=== PATIENT | male | born 1990 | race Caucasian/White ===

== ENCOUNTER 2019-04-22 08:53 | Inpatient (IN) | payer OTHER ==
[2019-04-22] MEDS: LACTATED RINGER'S 1,000 ML IV (10:04)
[2019-04-22] MEDS ORDERED: POLYMYXIN/BACITRACIN 1L IRRIG (11:08)
[2019-04-22] MEDS ORDERED: PROPOFOL 20 ML (11:34)
[2019-04-22] MEDS ORDERED: MIDAZOLAM 1 MG/ML 2 ML INJ (11:34)
[2019-04-22] MEDS ORDERED: LIDOCAINE 2% (SDV) 5 ML INJ (11:34)
[2019-04-22] MEDS ORDERED: SUCCINYLCHOLINE CHLORIDE 100 MG/5 ML SYG IV (11:34)
[2019-04-22] MEDS ORDERED: ROCURONIUM 50 MG INJ (11:34)
[2019-04-22] MEDS ORDERED: CEFAZOLIN 1 GM INJ (11:54)
[2019-04-22] MEDS ORDERED: FAMOTIDINE 20 MG INJ (11:54)
[2019-04-22] MEDS ORDERED: DEXAMETHASONE 4 MG/ML 5 ML INJ (11:54)
[2019-04-22] MEDS ORDERED: ONDANSETRON 4 MG INJ (11:54)
[2019-04-22] MEDS: HEMOSTATIC MATRIX SYG ZFS (12:25)
[2019-04-22] MEDS: BUPIVACAINE 0.5%/EPI (SDV) 30 ML INJ (12:25)
[2019-04-22] MEDS: GELATIN SIZE 100 SPONGE (12:25)
[2019-04-22] MEDS: THROMBIN 5000 UNIT (RECOTHROM) VIAL (12:26)
[2019-04-22] MEDS ORDERED: GLYCOPYRROLATE 0.4 MG INJ (14:57)
[2019-04-22] MEDS ORDERED: NEOSTIGMINE 3 MG/3 ML SYRINGE (14:57)
[2019-04-22] MEDS ORDERED: FENTAnyl 50 MCG/ML VIAL (15:18)
[2019-04-22] MEDS ORDERED: FENTAnyl 50 MCG/ML VIAL IV ×2 (15:30)
[2019-04-22] MEDS ORDERED: HYDROCODONE/APAP (5/325) TAB PO (15:30)
[2019-04-22] MEDS ORDERED: NACL 0.9% 3 ML SYG IV (15:30)
[2019-04-22] MEDS ORDERED: PROCHLORPERAZINE 10 MG TAB PO (15:30)
[2019-04-22] MEDS ORDERED: HYDROmorphONE 1 MG/5 ML IV SYRINGE IV (15:30)
[2019-04-22] MEDS ORDERED: MEPERIDINE 25 MG INJ IV (15:30)
[2019-04-22] MEDS ORDERED: ONDANSETRON 4 MG INJ IV ×2 (15:30)
[2019-04-22] MEDS ORDERED: NALOXONE (0.4 MG/ML) INJ IV (15:30)
[2019-04-22] MEDS ORDERED: PROCHLORPERAZINE 10 MG INJ IV (15:30)
[2019-04-22] MEDS: FENTAnyl 50 MCG/ML VIAL IV ×2 (15:34→15:39)
[2019-04-22] MEDS: HYDROmorphONE 1 MG/5 ML IV SYRINGE IV ×2 (16:15→16:29)
[2019-04-22] MEDS: DIPHENHYDRAMINE 50 MG INJ IV (16:38)
[2019-04-22] MEDS: HYDROCODONE/APAP (5/325) TAB PO ×2 (17:46→22:41)
[2019-04-22] MEDS: CEFAZOLIN 1 GM/50 ML (PMX) 50 ML IVPB (17:51)
[2019-04-23] MEDS: CEFAZOLIN 1 GM/50 ML (PMX) 50 ML IVPB ×3 (00:19→12:21)
[2019-04-23] MEDS: HYDROmorphONE 0.5 MG/0.5 ML SYG IV ×3 (00:22→12:21)
[2019-04-23 05:06] LABS: HEMATOCRIT 40.3 % (42.0-52.0); HEMOGLOBIN 13.7 g/dl (14.0-18.0)
[2019-04-23] MEDS: LACTATED RINGER'S 1,000 ML IV (05:34)
[2019-04-23] MEDS: HYDROCODONE/APAP (5/325) TAB PO ×4 (05:43→21:35)
[2019-04-23 05:54] LABS: ANION GAP 8 (5-13); BLOOD UREA NITROGEN 12 mg/dl (7-20); CALCIUM 9.2 mg/dl (8.4-10.2); CARBON DIOXIDE 27 mmol/L (21-31); CHLORIDE 102 mmol/L (97-110); CREATININE 0.71 mg/dl (0.61-1.24); Estimated GFR > 60 mL/min (>60); GLUCOSE 113 mg/dl (70-220); POTASSIUM 3.7 mmol/L (3.5-5.1); SODIUM 137 mmol/L (135-144)
[2019-04-23] MEDS: DOCUSATE SODIUM 100 MG CAP PO ×2 (10:01→21:35)
[2019-04-23] MEDS: GABAPENTIN 100 MG CAP PO (12:21)
[2019-04-23] MEDS: GABAPENTIN 300 MG CAP PO (21:35)
[2019-04-24] MEDS: HYDROCODONE/APAP (5/325) TAB PO ×5 (02:23→20:09)
[2019-04-24] MEDS: GABAPENTIN 100 MG CAP PO ×2 (07:35→11:54)
[2019-04-24] MEDS: DOCUSATE SODIUM 100 MG CAP PO ×2 (07:35→20:08)
[2019-04-24] MEDS: HYDROmorphONE 0.5 MG/0.5 ML SYG IV (08:36)
[2019-04-24] MEDS: LACTATED RINGER'S 1,000 ML IV (09:46)
[2019-04-24] MEDS: GABAPENTIN 400 MG CAP PO (20:09)
[2019-04-25] MEDS: HYDROCODONE/APAP (5/325) TAB PO ×3 (00:13→12:37)
[2019-04-25] MEDS: AL HYDROX/MG HYDROX/SIMETH 30 ML CUP PO (04:10)
[2019-04-25] MEDS: GABAPENTIN 100 MG CAP PO ×2 (08:37→11:13)
[2019-04-25] MEDS: DOCUSATE SODIUM 100 MG CAP PO (08:37)
[2019-04-25] MEDS: ACETAMINOPHEN 325 MG TAB PO (08:37)
[2019-04-25] MEDS: DEXAMETHASONE 10 MG/ML 1 ML INJ IV (09:27)
[2019-04-25] MEDS: HYDROmorphONE 0.5 MG/0.5 ML SYG IV (09:27)
== END 2019-04-25 15:40 | disposition home or self-care (01) | DRG 520 ==
LOC: SDS 08:53 → REC 15:03 → MS1 17:33
PROC: 0SB20ZZ Excision of Lumbar Vertebral Disc, Open Approach (ICD-10-PCS; principal; 2019-04-22 11:34)
PROC: 01NB0ZZ Release Lumbar Nerve, Open Approach (ICD-10-PCS; 2019-04-22 11:34)
DX: M51.16 Intervertebral disc disorders with radiculopathy, lumbar region (principal); M48.061 Spinal stenosis, lumbar region without neurogenic claudication
CPT/HCPCS: 72100; 80048; 85014; 85018; 88304; 97110; 97116; 97162; 97530